=== PATIENT | male | born 1975 | race Caucasian/White ===

== ENCOUNTER → 2020-03-23 | Outpatient (CLI) | payer OTHER, BC ==
[~2020-03-23] MED LIST: AMLODIPINE BESY10 MG PO; ASPIR 8181 MG PO; CARDURA4 MG PO; CHLORTHALIDONE25 MG PO; CLONIDINE HCL0.1 MG PO; DULERA 200 MCG/13 GM INH; HUMALOG PE100 UNIT/M SUBQ; HYDRALAZINE HC100 MG PO; LASIX 80 MG TAB80 MG PO; LEVEMIR FL100 UNIT/2 SQ; LISINOPRIL40 MG PO; LOPRESSOR100 M1 PO; OXYCODONE-ACET1 EACH PO; VENTOLIN HFA 1818 GM INH; VITAMIN D1000 UNI1 PO
== END ==
LOC: ULTRA 08:10
PROVIDERS: ATTEND Nurse Practitioner
DX: Z01.818 Encounter for other preprocedural examination (principal); R09.89 Other specified symptoms and signs involving the circulatory and respiratory systems; I65.21 Occlusion and stenosis of right carotid artery

== ENCOUNTER → 2021-06-08 | Day surgery (SDC) | payer OTHER, BC ==
[~2021-06-08] VITALS: Ht 180.3 cm; Wt 97.5 kg
[~2021-06-08] MED LIST changes: +ADULT LOW DOSE81 MG PO; +CARVEDILOL25 MG PO; +FLOMAX0.4 MG PO; +HUMALOG100 UNIT/1 SUBQ; -LISINOPRIL40 MG PO; +PLAVIX 75 MG TA75 MG PO; +TRESIBA100 UNIT/1 SUBQ; +XANAX 0.5 MG0.5 M1 PO; +ZESTRIL40 MG PO
--- NOTE | ~2021-06-08 | O ---
[facility] [address] OPERATIVE REPORT Name: JUAQUIN WYNNE Room #: [facility]..#: [id number] Admission: 06/08/21 Attend Phys: Valentín Nicholson MD Discharge: Date of : 73 Report #: [id number] THIS REPORT FOR: cc: Ellie Watts Beth RNP White, William L. MD ~ cc: MELANI Piña DATE OF SERVICE: 06/08/2021 PREOPERATIVE DIAGNOSES: Right anophthalmic ectropion with lid retraction, lagophthalmos and conjunctivitis. POSTOPERATIVE DIAGNOSES: Right anophthalmic ectropion with lid retraction, lagophthalmos and conjunctivitis. PROCEDURE: Right lower lid ectropion repair with transconjunctival right lower lid and cheek lift. SURGEON: Valentín Nicholson MD EQUIPMENT WASHER: None. ANESTHESIA: MAC. COMPLICATIONS: None. INDICATIONS FOR SURGERY: This pleasant 46-year-old gentleman who has previously undergone removal of his right eye. He subsequently developed a severe right lower lid ectropion in addition to right lower lid retraction, which has left him with chronic conjunctivitis and discharge, unable to wear a prosthesis. He presents today for a combined right lower lid ectropion repair with a transconjunctival lower lid and cheek lift in order to attempt to establish sufficient anatomy to be able to allow him to wear a prosthesis. Informed consent was obtained to include but not limited to the risk of bleeding, infection, and the need for further surgery or treatment. DESCRIPTION OF PROCEDURE: The patient was taken to the operating room where 2% Xylocaine with epinephrine mixed with equal parts 0.75% Marcaine with Wydase was administered transcutaneously and transconjunctivally to the right lower lid, the right lateral canthus, the right medial canthus, the right cheek and the right infratemporal fossa. He was subsequently prepped and draped in the usual sterile fashion. The right lateral canthus was then clamped with a Sinha clamp. Sharp canthotomy and cantholysis was subsequently performed. Hemostasis was then [address] [address] OPERATIVE REPORT Name: JUAQUIN WYNNE Room #: [facility] [place]#: [id number] Admission: 06/08/21 Attend Phys: Valentín Nicholson MD Discharge: Date of : 73 Report #: [id number] achieved with diligent pinpoint monopolar cautery as it was throughout the case. Hemostasis was somewhat challenging throughout the entire surgery. A tarsal strip was then prepared laterally removing the lash-bearing portion of the redundant lid margin and the redundant tarsal plate. Hemostasis was then re-achieved. Attention was then turned away from the ectropion repair and towards the lower lid and cheek lift. A transconjunctival incision was then made below the inferior border of the tarsal plate across the width of the lid. Hemostasis was then re-achieved. The dissection was then carried down into the premalar space sharply. Hemostasis was once more re-achieved. Multiple interrupted mattress 5-0 chromic sutures were then used to elevate the lower lid and cheek creating a fornix with mattress sutures being tied across his premalar space. The lower lid and cheek lifted well. Attention was then turned to completion of the ectropion repair. 5-0 Prolene sutures were used to secure the tarsal strip to the internal portion of the lateral orbital tubercle, after a medium size conformer was placed in the socket. A final closure of 6-0 plain gut was then used for the laterally based incision that extended into the infratemporal fossa. Erythromycin ointment was then instilled in the socket and the patient subsequently transported to the recovery area having tolerated the procedures well with no anesthetic or operative complications being noted. By: [id number] Valentín Nicholson MD /nt
[2021-06-08 07:50] VITALS: BP 171/99
== END | disposition home or self-care (01) ==
LOC: OR 06:08
PROVIDERS: ATTEND Ophthalmology
DX: H02.102 Unspecified ectropion of right lower eyelid (principal); I10 Essential (primary) hypertension; I48.91 Unspecified atrial fibrillation; F41.9 Anxiety disorder, unspecified; J45.909 Unspecified asthma, uncomplicated; G47.30 Sleep apnea, unspecified; Z98.890 Other specified postprocedural states; Z20.822 Contact with and (suspected) exposure to COVID-19; Z79.899 Other long term (current) drug therapy
CPT/HCPCS: 50010; 50101; 50386; 50398; 51636; 51854; 56527; 56531; 62110; 62850; 70005